=== PATIENT | male | born 1955 | race Caucasian/White ===

== ENCOUNTER 2022-04-01 11:31 | Emergency (ER) | payer MEDICARE, SELFPAY ==
--- NOTE | ~2022-04-01 | XR_ITS ---
XR finger 3rd LT min 2V DATE: 04/01/2022 13:38 INDICATION: Injury, laceration of third digit TECHNIQUE: 3 views COMPARISON: None FINDINGS: Soft tissue bandage overlies the distal third digit on 2 other views, limiting evaluation. No apparent fracture or dislocation, radiopaque soft tissue foreign body or subcutaneous emphysema is noted. There is mild osteoarthritis at the third metacarpophalangeal and distal interphalangeal joints. IMPRESSION: No fracture or dislocation or opaque foreign body is evident Mild osteoarthritis Reviewed, dictated and finalized at location A.
[2022-04-01 11:32] VITALS: BP 176/83; PULSE 111; RESP 16; TEMP 36.8; O2SAT 98
[2022-04-01] MEDS: LIDOCAINE HCL 1% LOCAL INJ 20 ML VIAL (12:50)
--- NOTE | 2022-04-01 13:17 | ED.WOUNDLAC ---
HPI - Wound/Laceration General Chief Complaint: Wound/Laceration <Samia Felix PA-C - Last Filed: 04/01/22 14:57> Stated Complaint: left middle finger injury <Samia Felix PA-C - Last Filed: 04/01/22 14:57> Time Seen by Provider: 04/01/22 11:59 <Samia Felix PA-C - Last Filed: 04/01/22 14:57> Source: patient <Samia Felix PA-C - Last Filed: 04/01/22 14:57> Mode of arrival: ambulatory <Samia Felix PA-C - Last Filed: 04/01/22 14:57> Limitations: no limitations <Samia Felix PA-C - Last Filed: 04/01/22 14:57> History of Present Illness HPI narrative: This is a 67-year-old male that presents to the emergency department for a laceration sustained just prior to arrival. Reports he accidentally cut his left middle finger with electric hedge tremors. He is not up-to-date on tetanus. Reports bleeding and pain to the area. Denies decreased range of motion or numbness. <Samia Felix PA-C - Last Filed: 04/01/22 14:57> Related Data Allergies/Adverse Reactions: Allergies Allergy/AdvReac Type Severity Reaction Status Date / Time No Known Allergies Allergy Unknown Verified 04/01/22 11:40 <SUSAN Carreon Last Filed: 04/01/22 14:57> Review of Systems Review of Systems: CONSTITUTIONAL: Denies fever SKIN: Reports laceration NEUROLOGIC: Denies numbness <SUSAN Carreon Last Filed: 04/01/22 14:57> All systems reviewed & are unremarkable except as noted in HPI and below <Samia Felix PA-C - Last Filed: 04/01/22 14:57> [facility]LY [facility] Past Medical History Medical History: Medical History (Updated 04/01/22 @ 14:57 by Samia Felix PA-C) Dizziness Audrey-rectal abscess (~2013) Ringing in ears <Samia Felix PA-C - Last Filed: 04/01/22 14:57> Family History Family History: Family History Father No problems noted. Mother No problems noted. Other Cerebrovascular accident <Samia Felix PA-C - Last Filed: 04/01/22 14:57> Social History Social History: Social History Social History: Patient drinks two cups of caffeine once daily Smoking status: Former smoker Smoking end date: 10/15/14 Alcohol intake: current Alcohol use details: Social drinker Substance use: never Gender identity (if verbalized by the patient): Male <Samia Felix PA-C - Last Filed: 04/01/22 14:57> Exam Narrative: GENERAL: Well-appearing, well-nourished, and in no acute distress. HEAD: Normocephalic, atraumatic. EYES: EOMI. EXTREMITIES: Normal range of motion. No edema or obvious deformity. Normal sensation. Normal radial pulse. Left third finger with 1.5cm linear laceration into subcutaneous tissue to the distal phalanx SKIN: Warm, dry, no rash. NEURO: No focal deficits. Alert and oriented x3. PSYCH: Normal mood and affect <Samia Felix PA-C - Last Filed: 04/01/22 14:57> Course MACHINING ASSOCIATE/PA Physician Supervision For this patient encounter, I reviewed the MACHINING ASSOCIATE or PA documentation, treatment plan, and medical decision making <Sean Santos MD - Last Filed: 04/01/22 17:25> Vital Signs Vital signs: Vital Signs Temperature 98.2 F 04/01/22 11:32 Pulse Rate 111 H 04/01/22 11:32 Respiratory Rate 16 04/01/22 11:32 Blood Pressure 176/83 H 04/01/22 11:32 Pulse Oximetry 98 04/01/22 11:32 Temperature 98.2 F 04/01/22 11:32 Pulse Rate 97 04/01/22 15:12 Respiratory Rate 16 04/01/22 15:12 Blood Pressure 164/80 H 04/01/22 15:12 Pulse Oximetry 99 04/01/22 15:12 <Samia Felix PA-C - Last Filed: 04/01/22 14:57> Vital Signs Temperature 98.2 F 04/01/22 11:32 Pulse Rate 111 H 04/01/22 11:32 Respiratory Rate 16 04/01/22 11:32 Blood Pressure 176/83 H 04/01/22 11:32 Pulse Oximetry 98 04/01/22 11:32 Temperature 98.2 F 04/01/22 11:32 Pulse
[2022-04-01] MEDS: TETANUS,DIPHTHERIA,AC PERTUSSIS ADULT (0.5 ML) BOOSTRIX IM (14:54)
[2022-04-01 15:12] VITALS: BP 164/80; PULSE 97; RESP 16; O2SAT 99
== END 2022-04-01 15:13 | disposition home or self-care (01) ==
PROVIDERS: Emergency Provider Emergency Medicine; PCP Emergency Medicine
DX: S61.213A Laceration without foreign body of left middle finger without damage to nail, initial encounter (principal); Z23 Encounter for immunization; Z87.891 Personal history of nicotine dependence; M19.042 Primary osteoarthritis, left hand; W29.3XXA Contact with powered garden and outdoor hand tools and machinery, initial encounter
CPT/HCPCS: 12001; 73140; 90471; 90715; 99283